=== PATIENT | female | born 1960 | race Caucasian/White ===

== ENCOUNTER 2018-12-10 06:50 | Emergency (ER) | payer MEDICAID ==
[2018-12-10 06:58] VITALS: BP 182/89
--- NOTE | 2018-12-10 07:19 | ER Document Report ---
HPI - HPI Time Seen by Provider: 12/10/18 07:09 Pain Level: 2 Context: Patient is a 4-year-old female who presents the emergency department with a bug bite to her right upper eyelid. She states that she woke up and her right eye was swollen. She has not taken any medications to help with the swelling. Denies any other complaints. Denies any fever. Denies any vision loss or blurred vision. Notes: REVIEW OF SYSTEMS: CONSTITUTIONAL : Denies recent illness. Denies recent unintentional weight loss. Denies fever, chills, or sweats. EENT: See HPI CARDIOVASCULAR: Denies chest pain. RESPIRATORY: Denies shortness of breath, cough, congestion, difficulty breathing, or wheezing. GASTROINTESTINAL: Denies nausea, vomiting, and diarrhea. Denies abdominal pain. Denies constipation. GENITOURINARY: Denies difficulty urinating, burning, blood in urine, urgency or frequency. MUSCULOSKELETAL: Denies neck and back pain. Denies joint pain or swelling. SKIN: See HPI HEMATOLOGIC : Denies easy bruising or bleeding. LYMPHATIC: Denies swollen, painful, enlarged glands. NEUROLOGICAL: Denies no numbness or tingling denies weakness. Denies headache. Denies altered mental status. Denies alteration in speech. PSYCHIATRIC: Denies stress, anxiety, alteration in sleep patterns, or depression. All other systems reviewed and negative. - REPRODUCTIVE Reproductive: DENIES: : Past Medical History - Social History Smoking Status: Unknown if Ever Smoked Family History: Reviewed & Not Pertinent - Past Medical History Cardiac Medical History: Reports: Hx Hypercholesterolemia, Hx Hypertension Endocrine Medical History: Reports: Hx Diabetes Mellitus Type 2 Psychiatric Medical History: Reports: Hx Depression - with anxiety Past Surgical History: Reports: Hx Tubal Ligation - Immunizations Hx Diphtheria, Pertussis, Tetanus Vaccination: Yes Vertical Provider Document - CONSTITUTIONAL Notes: PHYSICAL EXAMINATION: GENERAL: Appears well, healthy, well-nourished, no acute distress. HEAD: Normocephalic. EYES: PERRL, conjunctiva normal, all extraocular movements intact, sclera nonicteric, mild edema noted to right upper eyelid. ENT: Moist mucous membranes. Left side of nose missing, due to cancer. NECK: Supple, no noticeable swelling, redness, rash. Normal range of motion. PSYCH: Normal mood, normal affect. SKIN: Warm, dry. No rash, lesions, ulcerations noted. Normal skin turgor. - INFECTION CONTROL TRAVEL OUTSIDE OF THE [place] IN LAST 30 DAYS: No Course - Re-evaluation Re-evalutation: 12/10/18 07:19 Patient received Benadryl and Pepcid here in the emergency department and she will go home with instructions on Pepcid and Benadryl use for her bug bite. She is in agreement with this plan. Follow-up precautions were given. Verbal discharge instructions were given to the patient. They verbalized understanding. They are stable for discharge. - Vital Signs Vital signs: Temp Pulse Resp BP Pulse Ox 97.9 F 88 22 H 182/89 H 94 12/10/18 06:55 12/10/18 06:55 12/10/18 06:55 12/10/18 06:55 12/10/18 06:55 Discharge - Discharge Clinical Impression: Swelling of right upper eyelid Condition: Stable Disposition: HOME, SELF-CARE Additional Instructions: You were seen today in the emergency department for swelling to your right eye. Please take Benadryl 50 mg every 6 hours as needed for the swelling. Please apply the ice pack. You can also take Pepcid 20 mg twice a day for the next 3 days to help with swelling. If needed, you can follow-up with the [facility] or [facility]. Referrals: [facility] [Provider Group] - Follow up as needed [facility] [Provider Group] - Follow up as needed
[2018-12-10] MEDS ORDERED: FAMOTIDINE 20 MG TABLET PO ONE (07:20)
[2018-12-10] MEDS ORDERED: DIPHENHYDRAMINE HCL 50 MG CAPSULE PO ONE (07:20)
== END 2018-12-10 07:54 | disposition home or self-care (01) ==
LOC: ER 06:50
DX: S00.261A Insect bite (nonvenomous) of right eyelid and periocular area, initial encounter (principal); W57.XXXA Bitten or stung by nonvenomous insect and other nonvenomous arthropods, initial encounter; E78.00 Pure hypercholesterolemia, unspecified; I10 Essential (primary) hypertension; E11.9 Type 2 diabetes mellitus without complications; Z98.51 Tubal ligation status
CPT/HCPCS: 99281; J3490 ×2